=== PATIENT | female | born 1930 | race Caucasian/White ===

== ENCOUNTER 2016-10-04 14:05 | Inpatient (IN) | payer MEDICARE ==
[~2016-10-04] VITALS: Ht 157.5 cm; Wt 52.8 kg
[~2016-10-04 14:05] MED LIST: BRILINTA90 MG PO; GLUCOPHAGE500 MG PO; NEURONTIN 300300 MG PO; NEURONTIN600 MG PO; OXYBUTYNIN CHLOR5 MG PO; PLAVIX75 MG PO; TAMIFLU75 MG
[2016-10-04 15:27] LABS: BASOPHILS 0.1 % (0.0-2.0); EOSINOPHILS 0.4 % (0-7); HEMOGLOBIN 11.8 g/dL (12-16); IMMATURE GRANULOCYTES 0.3 % (0-5); LYMPHOCYTES 9.6 % (15-50); MCH 24.8 pg (26.0-34.0); MCHC 31.9 g/dL (31.0-37.0); MCV 77.7 fL (80.0-100.0); MEAN PLATELET VOLUME 9.1 fL (7.4-10.4); MONOCYTES 6.5 % (2-11); NEUTROPHILS 83.1 % (40-80); PLATELET COUNT 294 10x3/uL (130-400); RBC 4.76 10x6/uL (4.00-5.40)
[2016-10-04 16:23] LABS: ALBUMIN 2.9 g/dL (3.4-5.0); ALKALINE PHOSPHATASE 68 U/L (46-116); ALT (SGPT) 14 U/L (10-68); CALC OSMOLALITY 271 mosm/kg (275-300); CALCIUM 8.9 mg/dL (8.5-10.1); CHLORIDE - SERUM 99 mmol/L (98-107); CREATININE - SERUM 0.9 mg/dL (0.6-1.3); GLUCOSE 116 mg/dL (74-106); POTASSIUM - SERUM 4.5 mmol/L (3.5-5.1); PROTEIN - SERUM 6.1 g/dL (6.4-8.2); SODIUM 133 mmol/L (136-145); UREA NITROGEN 27 mg/dL (7-18); eGFR NON AFRICAN AMERICAN 62 mL/min (90-120)
[2016-10-04 16:30] LABS: APPEARANCE CLEAR (CLEAR); BILIRUBIN NEGATIVE (NEGATIVE); COLOR YELLOW (YELLOW); GLUCOSE NEGATIVE (NEGATIVE); KETONE NEGATIVE (NEGATIVE); LEUKOCYTE ESTERASE TRACE (NEGATIVE); NITRITE NEGATIVE (NEGATIVE); PROTEIN NEGATIVE (NEGATIVE); UROBILINOGEN NORMAL (NORMAL)
[2016-10-04 16:32] LABS: CREATINE KINASE 25 UL (21-215); THYROID STIMULATING HORMONE 2.57 uIU/mL (0.36-3.74); TROPONIN-I < 0.017 ng/mL (0.000-0.060)
[2016-10-04 16:33] LABS: BACTERIA FEW /hpf (NONE SEEN); EPITHELIAL CELLS 0-5 /hpf (0-5); RED CELLS - URINE OCC /hpf (0-5)
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
[2016-10-04 20:00] VITALS: BP 137/76
[2016-10-04] MEDS ORDERED: LITHIUM CARBON300 MG PO (20:16)
[2016-10-04] MEDS ORDERED: CARAFATE1 G PO (20:18)
[2016-10-04] MEDS ORDERED: OMEPRAZOLE20 M1 PO (20:19)
[2016-10-04 21:28] LABS: HEMOGLOBIN A1C 6.1 % (4.8-6.0)
[2016-10-05] VITALS (7 sets, daily range): BP systolic 99–137; BP diastolic 58–76; Ht 157.5 cm; Wt 52.8 kg
[2016-10-05 06:41] LABS: BASOPHILS 0.1 % (0.0-2.0); EOSINOPHILS 0.6 % (0-7); HEMATOCRIT 31.9 % (36.0-48.0); HEMOGLOBIN 10.3 g/dL (12-16); IMMATURE GRANULOCYTES 0.3 % (0-5); LYMPHOCYTES 8.3 % (15-50); MCH 24.6 pg (26.0-34.0); MCHC 32.3 g/dL (31.0-37.0); MCV 76.3 fL (80.0-100.0); MEAN PLATELET VOLUME 9.3 fL (7.4-10.4); MONOCYTES 6.7 % (2-11); PLATELET COUNT 256 10x3/uL (130-400); RBC 4.18 10x6/uL (4.00-5.40); RDW 14.2 % (11.5-14.5)
[2016-10-05 06:45] LABS: CALC OSMOLALITY 274 mosm/kg (275-300); CALCIUM 8.1 mg/dL (8.5-10.1); CARBON DIOXIDE 21.3 mmol/L (21.0-32.0); CHLORIDE - SERUM 104 mmol/L (98-107); CREATININE - SERUM 0.7 mg/dL (0.6-1.3); GLUCOSE 125 mg/dL (74-106); POTASSIUM - SERUM 4.8 mmol/L (3.5-5.1); SODIUM 135 mmol/L (136-145); UREA NITROGEN 24 mg/dL (7-18); eGFR NON AFRICAN AMERICAN 83 mL/min (90-120)
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
--- NOTE | 2016-10-05 19:20 | NUR ---
PT RECEIVED IN BED WITH EYES OPEN VISITING WITH DAUGHTER IN CHAIR AT BEDSIDE. NO COMPLAINTS AT THIS TIME. CALL LIGHT IN REACH.
[2016-10-06 02:00] VITALS: BP 132/70
--- NOTE | 2016-10-06 03:44 | NUR ---
PT IN BED WITH EYES CLOSED AND CHEST RISING. IV TO LEFT FOREARM PER CHARGE NURSE. NS 0.9% 1000ML RUNNING AT 125ML/HR. PATIENT WITHOUT SIGN/SYMPTOMS OF INFILTRATION AT THIS TIME. PT COMPLAINED OF HEAD PRESSURE AND NUMBNESS. B/P 134/76 AND PULSE 95. TYLENOL GIVEN PER SEP. REPOSITIONED IN BED WITH RELIEF FROM NUMBNESS NOTED BEFORE LEAVING ROOM. WILL CONTINUE TO OBSERVE. CALL LIGHT IN REACH. DAUGHTER IN ROOM WITH EYES CLOSED IN CHAIR AT BEDSIDE.
[2016-10-06 05:59] LABS: BASOPHILS 0.1 % (0.0-2.0); EOSINOPHILS 3.7 % (0-7); HEMATOCRIT 34.1 % (36.0-48.0); HEMOGLOBIN 10.8 g/dL (12-16); IMMATURE GRANULOCYTES 1.5 % (0-5); LYMPHOCYTES 7.1 % (15-50); MCH 24.7 pg (26.0-34.0); MCHC 31.7 g/dL (31.0-37.0); MEAN PLATELET VOLUME 10.2 fL (7.4-10.4); MONOCYTES 7.2 % (2-11); NEUTROPHILS 80.4 % (40-80); PLATELET COUNT 248 10x3/uL (130-400); RBC 4.37 10x6/uL (4.00-5.40); RDW 14.3 % (11.5-14.5); WBC 10.5 10x3/uL (4.8-10.8)
[2016-10-06 06:24] LABS: ALBUMIN 2.2 g/dL (3.4-5.0); BILIRUBIN - TOTAL 0.3 mg/dL (0.2-1.3); CALCIUM 8.2 mg/dL (8.5-10.1); CARBON DIOXIDE 23.6 mmol/L (21.0-32.0); POTASSIUM - SERUM 4.6 mmol/L (3.5-5.1); PROTEIN - SERUM 5.6 g/dL (6.4-8.2)
[2016-10-06 06:25] LABS: CREATININE - SERUM 0.9 mg/dL (0.6-1.3)
[2016-10-06 08:07] VITALS: BP 116/68
--- NOTE | 2016-10-06 08:22 | NUR ---
AM ROUNDING- PT LAYING IN BED ON RIGHT SIDE WITH EYES CLOSED RESTING. FAMILY MEMBER AT BEDSDIE. ON ROOM AIR. NO MONITOR. IV SEEN TO LEFT FOREARM WITH NS RUNNING AT 125CC/HR. SCDS ARE ON. PER REPORT PT IS UP WITH ASSIST. PER REPORT FROM REVENUE RESEARCH ANALYST NURSE JIMBO, PT HAS A COLOSTOMY. ON EP, WILL CHECK AM LABS AND TX PER PROTOCOL. NO NEED AT CURRENT TIME. WILL CONTINUE TO MONITOR AND CONTINUE WITH PLAN OF CARE.
[2016-10-06 12:22] VITALS: BP 135/103
--- NOTE | 2016-10-06 13:57 | NUR ---
Nutrition follow-up: Diet: Consistent CHO PO intake ~50% of meals Labs reviewed Wt: 99# Recommend changing diet to regular as tolerated due to pt with poor po intake at this time. Will continue tor provide food choices and honor food preferences with diet restrictions. RDN following.
--- NOTE | 2016-10-06 16:06 | NUR ---
CRISTINA KINGSTON CAME TO INFORM ME THAT PTS O2 SAT WAS READING VERY LOW. WENT TO CHECK ON PT AND PT STATED SHE FELT OUT OF IT. PTS 02 SAT WOULD NOT READ. CALLED RESPIRATORY IN ROOM. PT INSTRUCTED TO TAKE SOME DEEP BREATHS. PTS FINGERS WERE COLD TO TOUCH SO RESPIRATORY WARMED PTS HANDS UP. PTS O2 SAT IS 99% NOW ON ROOM AIR. WILL CONTINUE TO MONITOR.
[2016-10-06 16:10] VITALS: BP 117/63
--- NOTE | 2016-10-06 18:12 | NUR ---
YULIA ON PHONE, INFORMED ME THAT PT CANNOT HAVE A BARIUM SWALLOW TODAY ORDERED BY DR. LAMB BECAUSE THE SPEECH PATHOLOGIST IS NOT HERE. YULIA STATED IT WOULD HAVE TO BE TOMORROW. I PAGED SKYLER HASSAN NP TO INFORM HER OF THIS. WILL AWAIT CALLBACK.
--- NOTE | 2016-10-06 18:17 | NUR ---
RECEIVED CALLBACK FROM SKYLER HASSAN NP REGARDING PTS BARIUM SWALLOW TEST. I INFORMED SKYLER HASSAN NP THAT [facility] SAID THEY WOULD HAVE TO DO IT TOMORROW. SKYLER HASSAN NP STATED THAT WOULD BE FINE.
--- NOTE | 2016-10-06 18:18 | NUR ---
MAXIMO FROM [facility] CALLED TO INFORM ME THAT THEY WILL DO BARIUM SWALLOW TEST, ONE VIEW CHEST XRAY, RIBS, AND CT OF ABDOMEN TOMORROW. WILL PASS THIS ALONG IN REPORT.
--- NOTE | 2016-10-06 18:22 | NUR ---
PT LAYING IN BED ON BACK WITH EYES OPEN RESTING. DAUGHTER IS AT BEDSIDE. DR. EDMONDS IN ROOM MAKING ROUNDS. WILL AWAIT NEW ORDERS AND CONTINUE TO MONITOR.
--- NOTE | 2016-10-06 18:46 | NUR ---
DR. EDMONDS IN ROOM. INFORMED ME TO CALL FIRST THING IN THE MORNING TO [facility] TO GET "OPERATVIE REPORT AND PATHOLOGY REPORT FROM PTS SURGERY IN 2015". DR. EDMONDS ALSO INFORMED ME TO CALL [facility], AND GET PTS HISTORY AND PHYSICAL. INFORMED DR. EDMONDS THAT I WOULD PASS THIS ALONG IN REPORT AND DO ORDERED TOMORROW MORNING. WILL CONTINUE TO MONITOR.
--- NOTE | 2016-10-06 21:39 | NUR ---
PT LYING IN BED, EYES CLOSED, RESPIRATIONS EVEN AND UNLABORED. PT EASILY ROUSABLE TO VERBAL STIMULI, DENIES ANY ACUTE NEEDS. PT IS ALERT AND ORIENTED. I DID ASSIST PT IN CHANGING POSITIONS TURNING HER TO THE LEFT WITH A PILLOW UNDER HER RIGHT SIDE, WITH LEGS ELEVATED ON PILLOW AND HEELS BRIDGED. CONTINUE TO MONITOR CLOSELY.
[2016-10-07] VITALS: BP 122/67
[2016-10-07 04:00] VITALS: BP 130/64
--- NOTE | 2016-10-07 04:53 | NUR ---
NURSE ROUNDS 21:00 - PT AWAKE, ALERT, ORIENTED, DENIED ANY NEEDS. CONTINUE TO MONITOR CLOSELY. BED LOW, CALL LIGHT IN REACH, SIDE RAILS X 2, HOB 30 DEGREES.
[2016-10-07 05:34] LABS: BASOPHILS 0.1 % (0.0-2.0); EOSINOPHILS 0.2 % (0-7); HEMATOCRIT 32.9 % (36.0-48.0); HEMOGLOBIN 10.5 g/dL (12-16); IMMATURE GRANULOCYTES 0.3 % (0-5); MCH 24.8 pg (26.0-34.0); MCHC 31.9 g/dL (31.0-37.0); MCV 77.6 fL (80.0-100.0); MEAN PLATELET VOLUME 9.7 fL (7.4-10.4); MONOCYTES 8.5 % (2-11); NEUTROPHILS 82.9 % (40-80); PLATELET COUNT 293 10x3/uL (130-400); RBC 4.24 10x6/uL (4.00-5.40); RDW 14.3 % (11.5-14.5); WBC 11.8 10x3/uL (4.8-10.8)
[2016-10-07 05:59] LABS: ALBUMIN 1.9 g/dL (3.4-5.0); ANION GAP 12.9 mmol/L (8-16); BILIRUBIN - TOTAL 0.3 mg/dL (0.2-1.3); CARBON DIOXIDE 23.2 mmol/L (21.0-32.0); CREATININE - SERUM 0.9 mg/dL (0.6-1.3); POTASSIUM - SERUM 4.1 mmol/L (3.5-5.1); PROTEIN - SERUM 5.3 g/dL (6.4-8.2)
--- NOTE | 2016-10-07 07:59 | NUR ---
AM ROUNDING- PT LAYING IN BED ON BACK WITH EYES CLOSED RESTING. ON ROOM AIR. NO MONITOR. EP, WILL CHECK AM LABS AND TX PER PROTOCOL. IV SEEN TO LEFT FOREARM WITH NS RUNNING AT 125CC/HR. SCDS ARE ON. INFORMED LORI, JUVENILE CORRECTIONAL OFFICER THAT WE NEED OLD RECORDS FROM [facility] PER REPORT. LORI STATED SHE WOULD TRY AND RECEIVE THEM. NO OTHER NEED AT CURRENT TIME. WILL CONTINUE TO MONITOR AND CONTINUE WITH PLAN OF CARE.
[2016-10-07 08:00] VITALS: BP 127/60
--- NOTE | 2016-10-07 08:21 | NUR ---
STAFF MEMBER FROM IR ON UNIT INFORMED ME THAT SHE GAVE PT CONTRAST TO DRINK AND INFORMED PT TO NOT EAT OR DRINK ANYTHING UNTIL AFTER HER PROCEDURE, PT AGREED. NPO SIGN PLACED ON PTS DOOR AND PT ENCOURAGE TO DRINK CONTRAST FOR PROCEDURE. WILL CONTINUE TO MONITOR.
--- NOTE | 2016-10-07 10:04 | NUR ---
PT TO CT VIA BED.
--- NOTE | 2016-10-07 10:32 | NUR ---
Rehab Note- Acute Rehab Prescreen order received. The patient appears to be a good IRF candidate medically. Has a PT & OT eval- awaiting PT eval to see the patient's functional mobility. Will follow at this time. Thank you for this referral! Laura Pugh RN Clinical Liaison, [facility] Rehab/[place]
--- NOTE | 2016-10-07 10:50 | NUR ---
1015- PT BACK FROM CT VIA BED.
[2016-10-07 12:00] VITALS: BP 123/66
--- NOTE | 2016-10-07 16:52 | NUR ---
1600- ASSISTED PTS DAUGHTER IN CHANGING PTS COLOSTOMY BAG.
--- NOTE | 2016-10-07 17:26 | NUR ---
CONSENTS FOR PROCEDURE SIGNED BY PT AND PLACED IN CHART. PT INSTRUCTED TO REMAIN NPO (NOTHING BY MOUTH) AFTER MIDNIGHT FOR PROCEDURE TOMORROW, PT AGREED. WILL PASS THIS ALONG IN REPORT AND CONTINUE MONITOR.
--- NOTE | 2016-10-07 17:33 | NUR ---
Patient Name: ANA QUACH Encounter No: [id number] : 1930 Primary Insurance: MEDICARE A & B Anticipated DC Date: 10-07-2016 Planned Disposition: inpatient rehab External Planned Provider: [facility] inpatient rehab DCP follow-up note: CM RECEIVED ORDER FOR INPATIENT REHAB PRESCREENING. CM MET WITH PT AND DAUGHTER IN ROOM AND DISCUSSED INPATIENT REHAB OPTIONS. PT WOULD LIKE TO BE CONSIDERED FOR INPATIENT REHAB AT [facility] WITH GOAL TO DISCHARGE HOME WITH DAUGHTER. IMPORTANT MESSAGE FROM MEDICARE PROVIDED AND EXPLAINED. CM WAITING RESULTS OF INPATIENT REHAB PRESCREENING BY [facility] INPATIENT [facility]. Hal Jeter, CASE MANAGEMENT
[2016-10-07 17:52] VITALS: BP 128/78
[2016-10-07 20:52] VITALS: BP 127/64
--- NOTE | 2016-10-07 21:39 | NUR ---
PT AWAKE, ALERT, ORIENTED, HAS AMBULATED WITH ASSIST TO BATHROOM. PT DENIES ANY NEEDS. CONTINUE TO MONITOR CLOSELY. BED LOW, CALL LIGHT IN REACH, SIDE RAILS X 2, HOB 35 DEGREES.
[2016-10-08 01:33] VITALS: BP 136/61
--- NOTE | 2016-10-08 01:45 | NUR ---
PTS IV IN LEFT FOREARM HAS INFILTRATED, REMOVED, WITH CATH TIP INTACT. WILL RESITE. PT DENIES ANY NEEDS. CONTINUE TO MONITOR CLOSELY.
[2016-10-08 05:01] LABS: BASOPHILS 0.1 % (0.0-2.0); EOSINOPHILS 0.8 % (0-7); HEMATOCRIT 27.2 % (36.0-48.0); HEMOGLOBIN 8.7 g/dL (12-16); IMMATURE GRANULOCYTES 0.4 % (0-5); LYMPHOCYTES 7.6 % (15-50); MCH 24.6 pg (26.0-34.0); MCV 76.8 fL (80.0-100.0); MEAN PLATELET VOLUME 9.4 fL (7.4-10.4); MONOCYTES 9.4 % (2-11); NEUTROPHILS 81.7 % (40-80); PLATELET COUNT 253 10x3/uL (130-400); RBC 3.54 10x6/uL (4.00-5.40); RDW 14.2 % (11.5-14.5)
[2016-10-08 05:07] LABS: WBC 8.4 10x3/uL (4.8-10.8)
[2016-10-08 05:13] LABS: INR 1.19 (0.85-1.17)
[2016-10-08 05:14] LABS: APTT 38.6 SECONDS (22.8-39.4)
[2016-10-08 05:18] LABS: ALBUMIN 1.7 g/dL (3.4-5.0); ALKALINE PHOSPHATASE 59 U/L (46-116); ALT (SGPT) 10 U/L (10-68); CALC OSMOLALITY 270 mosm/kg (275-300); CALCIUM 7.8 mg/dL (8.5-10.1); CARBON DIOXIDE 21.9 mmol/L (21.0-32.0); CHLORIDE - SERUM 104 mmol/L (98-107); CREATININE - SERUM 0.7 mg/dL (0.6-1.3); GLUCOSE 118 mg/dL (74-106); POTASSIUM - SERUM 3.9 mmol/L (3.5-5.1); PROTEIN - SERUM 5.1 g/dL (6.4-8.2); SODIUM 134 mmol/L (136-145); UREA NITROGEN 18 mg/dL (7-18); eGFR NON AFRICAN AMERICAN 83 mL/min (90-120)
[2016-10-08 06:04] VITALS: BP 157/61
[2016-10-08 07:47] VITALS: BP 120/68
--- NOTE | 2016-10-08 08:23 | NUR ---
RESTING IN BED. NPO FOR CT PARACENSTIS.
--- NOTE | 2016-10-08 09:31 | NUR ---
Rehab Note- Awaiting Oncology consult. Will continue to follow the patient at this time. Laura Pugh RN Clinical Liaison, [facility] Rehab/[place]
[2016-10-08 11:31] VITALS: BP 107/62
--- NOTE | 2016-10-08 13:06 | NUR ---
Nutrition follow-up: Pt is currently NPO for paracentesis Diet changed to mechanical soft with nectar thick liquids Wt: 103# +BM RDN following.
--- NOTE | 2016-10-08 14:40 | NUR ---
BACK FROM PARACENTISIS - 2 LITERS REMOVED. SLEEPING BUT AROUSEABLE. FAMILY AT BEDSIDE.
[2016-10-08 15:16] LABS: EOS BF 2 %; LYMPH - BF 14 %; MACROPHAGES BF 67 %; MESOTHELIALS BF 4 %; NEUT - BF 13 %
[2016-10-08 15:17] LABS: PROTEIN - BODY FLUID 3.2 G/DL
[2016-10-08 15:35] VITALS: BP 128/64
--- NOTE | 2016-10-08 15:45 | NUR ---
ORDER FOR BLACK REMOVAL. 1400 CC OF CLEAR URINE DRAINED. BLACK BULB DRAINED OF 10CC. BLACK REMOVED WITH TIP INTACT. NO SIGNS OF INFECTION NOTED. URINAL GIVEN TO PATIENT AND INSTRUCTED ABOUT OUTPUT. PATIENT HAS BEEN UP IN CHAIR AND WALKED WITH PT. RUDI WELL. MONITOR SHOWS FLUTTER AT RATE OF 79. PATIENT HAS BEEN FROM [place] TO UNAF, TO FLUTTER. SAMANTHA GTT ON @ 5. WILL CONTINUE TO MONITOR.
--- NOTE | 2016-10-08 17:43 | CN ---
PATIENT NAME:ANA QUACH MEDICAL RECORD: [id number] : [birth year] LOCATION:[address]2134 ADMIT DATE: 10/04/16 ACCOUNT: [id number] CONSULTING PHYSICIAN: ALBAN CELIS MD REFERRING PHYSICIAN: HUEY GARCIA MD DATE OF CONSULTATION: 10/05/2016 Gastroenterology Consultation REFERRING PHYSICIAN: Huey Garcia MD HISTORY OF PRESENT ILLNESS: The patient is an 86-year-old white female, very poor historian with a history of bipolar disorder, coronary artery disease, diabetes, hypertension, osteoarthritis, and chronic constipation, who was basically admitted with mild anemia, dehydration, and heme-positive stool. I was asked to see the patient in this regard. On further questioning, she apparently was diagnosed with a pelvic mass at [facility] in May 2015 requiring exploratory laparotomy. 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 She was also encroaching into the rectum, sigmoid colon and the bladder. She subsequently underwent resection of that area with ostomy placement. She also had part of her vagina removed as well as both ovaries. She did not have chemotherapy. It is a little unclear as to why. She did have some positive lymph nodes. She ended up in [place] and apparently chemo was not recommended. Regardless, she is now on [place] and presents with the above presentation. She is a very poor historian. She has a somewhat protuberant abdomen. PAST MEDICAL HISTORY: As above. She has also had CVA as well as neuropathy. PAST SURGICAL HISTORY: Remarkable for appendectomy, hysterectomy, bilateral shoulder replacement, CABG and her exploratory laparotomy as noted above at [facility]. ALLERGIES: No known drug allergies. HOME MEDICATIONS: Include metformin, Ditropan, Neurontin, lithium, Carafate, omeprazole, Plavix, Brilinta and Tamiflu. FAMILY HISTORY: Negative for GI disease. SOCIAL HISTORY: The patient is former smoker. She denies alcohol use. REVIEW OF SYSTEMS: Noncontributory other than in the HPI. PHYSICAL EXAMINATION: GENERAL: Reveals a frail elderly white female, in minimal distress. Again, she is a very poor historian. VITAL SIGNS: Stable. She is afebrile. CHEST: Clear. HEART: Regular rate and rhythm. ABDOMEN: Soft, but definitely protuberant with probable ascites. EXTREMITIES: Reveal trace pedal edema bilaterally. LABORATORY DATA: Reveals a white count of 11,000, hematocrit of 32, MCV of 76, CONSULT REPORT [id number] ANA QUACH and platelet count of 256,000 with a mild left shift. Electrolytes are normal. BUN 20 and creatinine 0.9. Liver enzymes are normal. Albumin is quite low at 2.2. CEA is 1.3. TSH is normal at 2.57. [place] level is 0.96 ____. UA is negative. DIAGNOSTIC DATA: KUB reveals significant constipation. IMPRESSION: 1. Heme-positive stool lady with a left-sided colostomy and mild anemia of unclear etiology. This might be due to trauma at the ostomy site, focal colitis, upper gastrointestinal source, etc. She has dark brown stool in her bag at present. 2. Very poor historian. 3. History of a large pelvic mass requiring resection in May 2015 at [facility] as noted above. This was involving the bladder and her colon and was a neuroendocrine tumor. She did not get chemotherapy. 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 4. Constipation per KUB. 5. History of bipolar disorder, coronary artery disease, diabetes, hypertension, osteoarthritis, and chronic constipation. RECOMMENDATION: 1. Try to obtain all of the records from [facility] in [place]. 2. MiraLax daily. 3. Probably needs a paracentesis. 4. Consider oncology referral. 5. Obviously, hold her Plavix and Brilinta. TRANSINT:[id number] Voice Confirmation ID: [id number] DOCUMENT ID: [id number] ALBAN CELIS MD at 1743 CC: HUEY GARCIA MD [id number] DICTATION DATE: 10/07/16 1334 VOLCANOLOGY PROFESSOR: 10/07/16 2753 ADM IN [facility] [address] [place] [address]
--- NOTE | 2016-10-08 19:59 | NUR ---
PT SEEN TODAY FOR DIET TOLERANCE ANALYSIS. NURSING REPORTED PT HAVING NO DIFFICULTY WITH DIET; CLEARED PT FOR PARTICIPATION. PT AWAKE, ALERT, AND LONG-SITTING IN BED UPON CLINICIAN ARRIVAL. PT DAUGHTER AT BEDSIDE. PT DENIED PAIN; BREATHING ROOM AIR. PT PRESENTED WITH GENERALIZED WEAKNESS AND CONFUSION. CLINCIAN ELEVATED HOB TO 90 DEGREES. PT WAS GIVEN TRIALS OF MECHANICAL SOFT AND THIN LIQUIDS WITH NO OVERT S/SX OF ASPIRATION. CLINICIAN RECOMMENDS PT CONTINUE CURRENT DIET WITH GENERAL SWALLOW PRECAUTIONS. CLINCIAN REVIEWED SWALLOWING PRECAUTIONS WITH PT AND DAUGHTER; BOTH VERBALIZED AGREEMENT AND UNDERSTANDING. NURSING INFORMED.
[2016-10-08 20:00] VITALS: BP 140/62
[2016-10-09 04:00] VITALS: BP 142/72
[2016-10-09 05:37] LABS: BASOPHILS 0.1 % (0.0-2.0); EOSINOPHILS 1.6 % (0-7); HEMATOCRIT 28.4 % (36.0-48.0); HEMOGLOBIN 9.3 g/dL (12-16); IMMATURE GRANULOCYTES 0.4 % (0-5); LYMPHOCYTES 8.7 % (15-50); MCH 25.1 pg (26.0-34.0); MCHC 32.7 g/dL (31.0-37.0); MCV 76.8 fL (80.0-100.0); MEAN PLATELET VOLUME 9.7 fL (7.4-10.4); MONOCYTES 8.1 % (2-11); NEUTROPHILS 81.1 % (40-80); PLATELET COUNT 239 10x3/uL (130-400); RDW 14.4 % (11.5-14.5)
[2016-10-09 05:56] LABS: ALBUMIN 1.7 g/dL (3.4-5.0); ALKALINE PHOSPHATASE 59 U/L (46-116); ALT (SGPT) 12 U/L (10-68); BILIRUBIN - TOTAL 0.25 mg/dL (0.2-1.3); CALC OSMOLALITY 273 mosm/kg (275-300); CALCIUM 7.7 mg/dL (8.5-10.1); CARBON DIOXIDE 20.4 mmol/L (21.0-32.0); CHLORIDE - SERUM 104 mmol/L (98-107); CREATININE - SERUM 0.7 mg/dL (0.6-1.3); GLUCOSE 141 mg/dL (74-106); POTASSIUM - SERUM 4.2 mmol/L (3.5-5.1); PROTEIN - SERUM 4.4 g/dL (6.4-8.2); SODIUM 135 mmol/L (136-145); UREA NITROGEN 18 mg/dL (7-18); eGFR NON AFRICAN AMERICAN 83 mL/min (90-120)
[2016-10-09 08:47] VITALS: BP 144/78
--- NOTE | 2016-10-09 09:00 | NUR ---
Patient Name: ANA QUACH Encounter No: [id number] : 1930 Primary Insurance: MEDICARE A & B Anticipated DC Date: 10-07-2016 Planned Disposition: INPATIENT REHAB External Planned Provider: [facility] INPAT[facility] DCP follow-up note: CM CALLED SHEELA CHRISTINE OF [facility], , LEFT MESSAGE ASKING FOR RETURN CALL AND TO FOLLOW UP WITH PT AND DAUGHTER REGARDING EXISTING [facility] REFERRAL. PT AND DAUGHTER NOTIFIED, BOTH STILL IN AGREEMENT WITH DISCHARGE TO INPATIENT REHAB AT [place]. CM WAITING MEDICAL STABILITY WITH PLANNED DISCHARGE TO [facility] INPATIENT REHAB. WHEN STABLE FOR DISCHARGE, NOTIFY [facility]PAT[facility]. Hal Jeter, CASE MANAGEMENT
[2016-10-09 13:34] VITALS: BP 150/80
[2016-10-09] MEDS ORDERED: MINERAL OIL25 ML PO (15:02)
[2016-10-09] MEDS ORDERED: MIRALAX17 GM PO (15:02)
[2016-10-09 18:15] VITALS: BP 173/77
--- NOTE | 2016-10-09 18:50 | NUR ---
ALERT AND ORIENTED X4. RESTING IN BED. WAITING FOR REHAB BED DOWNSTAIRS. TRY CALLING BUT NO ANSWER. INFORM POWER SHOVEL OPERATOR NO ANSWER TO GIVE REPORT AND NO BED ASSIGNED. CONTINUE PLAN OF CARE AND SAFETY PRECAUTIONS.
--- NOTE | 2016-10-09 20:10 | NUR ---
REPORT CALLED TO REHAB BY [facility] FROM DAY SHIFT. REVIEWED DISCHARGE PAPERS WITH PT'S DAUGHTER AND PT NOW BEING READIED TO BE TAKEN TO ROOM 1116 IN REHAB.
--- NOTE | 2016-10-12 11:06 | NUR ---
Patient Name: ANA QUACH Encounter No: [id number] : 1930 Primary Insurance: MEDICARE A & B Anticipated DC Date: 10-09-2016 Planned Disposition: Inpatient Rehab External Planned Provider: [facility] IN[facility] DCP follow-up note: CM RECEIVED CALL FROM SHEELA KING OF [facility], WHO PROVIDED FAX NUMBER FOR MEDICAL RECORDS. CM FAXED REQUESTED INFORMATION, PROVIDED UPDATE TO ADULT PROTECTIVE SERVICES TO PT'S DISCHARGE ON WEDNESDAY LAST WEEK TO INPATIENT REHAB. Hal Jeter, CASE MANAGEMENT
[2016-10-12 14:43] LABS: CHROMOGRANIN A 18 nmol/L (0-5)
--- NOTE | 2016-10-13 14:37 | EC ---
PATIENT:ANA QUACH DATE OF SERVICE: 10/04/16 SEX: F MEDICAL RECORD: [id number] DATE OF : [birth year] LOCATION:D.M2 D.213 AGE OF PATIENT: 86 ADMISSION DATE: 10/04/16 REFERRING PHYSICIAN: INTERPRETING PHYSICIAN: SUNDAY ARCHER MD ECHOCARDIOGRAM REPORT ECHO CHARGES 4 ECHO COMPLETE CLINICAL DIAGNOSIS: EDEMA HX OF CAD/CABG ECHOCARDIOGRAPHIC MEASUREMENTS (adult normal given) AC root (d.<3.7cm) 3.2 LV Septum d (<1.2 cm> 0.9 Valve Excursion 1.3 LV Septum (systole) 1.2 Left Atria (s.<4.0cm> 4.0 LVPW d(<1.2cm) 1.4 RV (d.<2.3cm) 2.8 LVPW (sytole) 1.5 LV diastole(<5.6CM) 4.4 MV E-F(>70mm/sec) LV systole 3.2 LVOT Diameter 1.4 MV exc.(>10mm) 1.2 Est.ejection fraction (50-75%) Pericardial Effusion N DOPPLER: LVIT A 86.0 E 58.0 LA RVSP 59 LVOT 92 AOP1/2T Asc. Ao 125 RVOT 89 RA PA 124 AV Gradient Peak 6.24 AV Mean 3.68 AV Area 1.2 MV Gradient Peak 4.74 MV Mean 1.55 MV Area COMMENTS: Vp Software: Michael SIN Header Dock:Jerald Lawrence TAPE# PACS DATE OF SERVICE: 10/05/2016 Echocardiogram FINDINGS: 1. Left ventricular chamber size is within normal limits. Left ventricular systolic function is normal. Overall ejection fraction estimated at 55%. 2. Left atrium is upper limits of normal at 4.0 cm. Right atrium and right ventricular chamber sizes are mildly dilated. 3. Valvular structures. 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 Valve area calculates to 1.2 cm-squared with a gradient of approximately 10 mm across the valve. The remaining valvular structures have normal structure and motion. 4. Doppler interrogation reveals mild mitral regurgitation, moderate tricuspid regurgitation, no other valvular insufficiency or stenosis. Pulmonary systolic pressure is elevated estimated at 59 mmHg. 5. No evidence of pericardial effusion or left ventricular thrombus. TRANSINT:[id number] Voice Confirmation ID: [id number] DOCUMENT ID: [id number] SUNDAY ARCHER MD at 1437 CC: [id number] DICTATION DATE: 10/05/16 1204 VIROLOGY TEACHER: 10/05/16 1418 DIS IN 10/09/16 [place] [id number] [place] [id number]
[2016-10-14 09:19] LABS: SEROTONIN 35 ng/mL (0-420)
== END 2016-10-09 20:38 | DRG 811 ==
LOC: D.ER 14:05 → D.M2 16:47
PROVIDERS: Emergency Medicine; Family Medicine; General Practice; Internal Medicine Gastroenterology; Internal Medicine Hematology & Oncology; ADMIT Family Medicine
PROC: 0W9G3ZZ Drainage of Peritoneal Cavity, Percutaneous Approach (ICD-10-PCS; principal; 2016-10-08 13:08)
DX: D64.9 Anemia, unspecified (principal); I50.21 Acute systolic (congestive) heart failure; E43 Unspecified severe protein-calorie malnutrition; Z68.1 Body mass index [BMI] 19.9 or less, adult; R19.5 Other fecal abnormalities; I08.1 Rheumatic disorders of both mitral and tricuspid valves; E11.65 Type 2 diabetes mellitus with hyperglycemia; E11.40 Type 2 diabetes mellitus with diabetic neuropathy, unspecified; I27.2 Other secondary pulmonary hypertension; E86.0 Dehydration; E27.9 Disorder of adrenal gland, unspecified; I25.10 Atherosclerotic heart disease of native coronary artery without angina pectoris; R53.1 Weakness; K59.09 Other constipation; Z93.3 Colostomy status; Z95.1 Presence of aortocoronary bypass graft; Z85.038 Personal history of other malignant neoplasm of large intestine; Z95.5 Presence of coronary angioplasty implant and graft; Z86.73 Personal history of transient ischemic attack (TIA), and cerebral infarction without residual deficits; Z87.891 Personal history of nicotine dependence

== ENCOUNTER 2016-10-09 20:30 | Inpatient (IN) | payer MEDICARE ==
[~2016-10-09] VITALS: Ht 157.5 cm; Wt 41.7 kg
[~2016-10-09 20:30] MED LIST changes: +CARAFATE1 G PO; +LITHIUM CARBON300 MG PO; +MINERAL OIL25 ML PO; +MIRALAX17 GM PO; +OMEPRAZOLE20 M1 PO
--- NOTE | 2016-10-09 20:30 | NUR ---
PT ADMITTED FROM UPSTAIRS TO ROOM 1116. DAUGHTER STATES SHE PLANS TO STAY WITH PATIENT. PT LIVES WITH DAUGHTER. ORIENTED TO ROOM AND NUTRITION CENTER. NO NEEDS NOTED AT THIS TIME. PT DENIES PAIN.
--- NOTE | 2016-10-09 22:00 | NUR ---
PT SITTING UP IN CHAIR, TOLERATED TAKING MEDS WHOLE. PT STATES HER STOMACH IS FEELING BETTER IN REFERENCE TO ULCER. DAUGHTER AND PATIENT APPEAR TO INTERACT WELL. ADMISSION PROCESS INITIATED AND ENDED. NO ACUTE S/S OF DISTRESS. PT STATES SHE IS TIRED AND FEELS WEAK. PLANS ARE TO RETURN HOME, DAUGHTER STATES ARE WAITING FOR RESULTS RELATED TO POTENTIAL LOWER ABDOMINAL TUMOR THAT HAS RETURNED.
[2016-10-09 22:40] VITALS: BP 136/76; BMI 16.8
--- NOTE | 2016-10-10 05:24 | NUR ---
PT RESTING QUIETLY NO S/S OF ACUTE DISTRESS.
[2016-10-10 08:00] VITALS: BP 116/61
--- NOTE | 2016-10-10 08:00 | NUR ---
POS UP IN BED.SHIFT ASSMT COMPLETED.BILAT LEGS +4 PITTING EDEMA.ABD SOFT BUT IS DISTENDED;RECENTLY HAD REMOVEAL OF 2L/PARACENTESIS.DRSG REMOVED.
[2016-10-10 10:29] VITALS: Ht 157.5 cm; Wt 41.7 kg
--- NOTE | 2016-10-10 12:00 | NUR ---
HAD LONG THERAPY SESSION;PLACED IN BED.LUNCH GIVEN.
[2016-10-10 12:18] LABS: BASOPHILS 0.1 % (0.0-2.0); EOSINOPHILS 1.2 % (0-7); HEMATOCRIT 32.6 % (36.0-48.0); HEMOGLOBIN 10.5 g/dL (12-16); IMMATURE GRANULOCYTES 0.2 % (0-5); LYMPHOCYTES 8.7 % (15-50); MCH 24.4 pg (26.0-34.0); MCHC 32.2 g/dL (31.0-37.0); MCV 75.6 fL (80.0-100.0); MEAN PLATELET VOLUME 9.2 fL (7.4-10.4); MONOCYTES 7.4 % (2-11); NEUTROPHILS 82.4 % (40-80); PLATELET COUNT 305 10x3/uL (130-400); RBC 4.31 10x6/uL (4.00-5.40); RDW 14.3 % (11.5-14.5); WBC 8.4 10x3/uL (4.8-10.8)
[2016-10-10 12:36] LABS: ANION GAP 13.1 mmol/L (8-16); CALCIUM 8.2 mg/dL (8.5-10.1); CREATININE - SERUM 0.8 mg/dL (0.6-1.3); POTASSIUM - SERUM 4.3 mmol/L (3.5-5.1)
[2016-10-10 12:37] LABS: CARBON DIOXIDE 26.2 mmol/L (21.0-32.0)
--- NOTE | 2016-10-10 16:00 | NUR ---
RESTING QUIETLY ON SIDE.DENIES NEEDS.
[2016-10-10 20:10] VITALS: BP 141/79
--- NOTE | 2016-10-10 20:10 | NUR ---
PT IN BED WITH HOB UP FOR COMFORT, VISITING WITH DAUGHTER, PT COMPLAINED OF HAVING LEG PAIN, BED IN LOWEST POSITION AND CALL LIGHT WITHIN REACH.
--- NOTE | 2016-10-10 22:00 | NUR ---
PT STATES LEG PAIN IS GETTING WORSE AND PAIN LEVEL IS 9/10. REQUESTS TYLENOL.
--- NOTE | 2016-10-11 01:30 | NUR ---
pt c/o nausea and urge to vomit. daughter administering baking soda/lemon juice mixed in water as a remedy. daughter states this is what mother takes and home and it usually relieves, daughter believes lemon pie eaten earlier today triggered this episode. applied wet wash cloth and encouraged pt to keep hob elevated.
--- NOTE | 2016-10-11 02:00 | NUR ---
PT IN BED, EYES CLOSED, CHEST RISING AND FALLING, BED IN LOWEST POSITION AND CALL LIGHT WITHIN REACH.
--- NOTE | 2016-10-11 06:00 | NUR ---
PT IN BED, RESTING QUIETLY, BED IN LOWEST POSITION AND CALL LIGHT WITHIN REACH.
[2016-10-11 08:00] VITALS: BP 129/54; BP 140/73
--- NOTE | 2016-10-11 08:00 | NUR ---
SHIFT ASSMT COMPLETED.UP OOB FOR BREAKFAST.SISTER AT BEDSIDE.
--- NOTE | 2016-10-11 12:00 | NUR ---
ASSISTED UP OOB FOR LUNCH.CL IN REACH.
--- NOTE | 2016-10-11 16:00 | NUR ---
RESTING QUIETLY,ABD DISTENDED BUT SOFT.EDEMA REMAINS TO BILAT LEGS,PITTING 4+.
[2016-10-11 20:36] VITALS: BP 158/84
--- NOTE | 2016-10-11 20:36 | NUR ---
PT SITTING ON SIDE OF BED, PT REQUESTED TO GO TO THE BATHROOM, HELPED PT TO THE BATHROOM AND BACK IN BED.
--- NOTE | 2016-10-12 00:35 | NUR ---
RESTING IN BED ON RIGHT SIDE. NO DISTRESS NOTED.
--- NOTE | 2016-10-12 03:29 | NUR ---
PT IN BED, EYES CLOSED, CHEST RISING AND FALLING, BED IN LOWEST POSITION AND CALL LIGHT WITHIN REACH.
[2016-10-12 06:06] LABS: BASOPHILS 0.1 % (0.0-2.0); EOSINOPHILS 0.9 % (0-7); HEMATOCRIT 32.6 % (36.0-48.0); HEMOGLOBIN 10.4 g/dL (12-16); IMMATURE GRANULOCYTES 0.2 % (0-5); LYMPHOCYTES 9.5 % (15-50); MCH 24.5 pg (26.0-34.0); MCHC 31.9 g/dL (31.0-37.0); MCV 76.7 fL (80.0-100.0); MEAN PLATELET VOLUME 9.2 fL (7.4-10.4); MONOCYTES 6.2 % (2-11); NEUTROPHILS 83.1 % (40-80); PLATELET COUNT 278 10x3/uL (130-400); RBC 4.25 10x6/uL (4.00-5.40); RDW 14.4 % (11.5-14.5); WBC 8.5 10x3/uL (4.8-10.8)
[2016-10-12 06:18] LABS: CALC OSMOLALITY 274 mosm/kg (275-300); CALCIUM 8.3 mg/dL (8.5-10.1); CARBON DIOXIDE 27.2 mmol/L (21.0-32.0); CHLORIDE - SERUM 104 mmol/L (98-107); CREATININE - SERUM 0.6 mg/dL (0.6-1.3); GLUCOSE 106 mg/dL (74-106); POTASSIUM - SERUM 4.1 mmol/L (3.5-5.1); SODIUM 137 mmol/L (136-145); UREA NITROGEN 16 mg/dL (7-18); eGFR NON AFRICAN AMERICAN > 90 mL/min (90-120)
--- NOTE | 2016-10-12 07:30 | NUR ---
PT IS RESTING IN BED WITH EYES OPEN. ALERT AND ORIENTED X 3. DENIES ACUTE PAIN OR DISCOMFORT AT THIS TIME. SCD'S ARE ON. 4+EDEMA NOTED TO BLE. COLOSTOMY IS CDI. PT ASSISTED UP TO THE BATHROOM AT THIS TIME. TRANSFERRED WITH MOD ASSIST. AMBULATED WITH RW AND CGA. GAIT IS SLOW AND UNSTEADY. TOILETED WITH SBA. DRESSING WITH MOD ASSIST. PT OPTED TO SIT UP IN CHAIR AFTERWARDS FOR BREAKFAST. SR'S ARE UP X 3 IN BED. CALL LIGHT AND BEDSIDE TABLE ARE WITHIN EASY REACH.
--- NOTE | 2016-10-12 07:31 | NUR ---
RESTING QUIETLY IN BED CALL LIGHT IN REACH
--- NOTE | 2016-10-12 10:01 | NUR ---
PT IS PARTICIPATING IN THERAPY AT THIS TIME.
--- NOTE | 2016-10-12 13:17 | NUR ---
PT IS PARTICIPATING IN THERAPY AFTER LUNCH. NO ACUTE DISTRESS NOTED.
--- NOTE | 2016-10-12 15:40 | NUR ---
PT IS RESTING QUIETLY IN BED WATCHING TV. NO NEEDS VOICED.
--- NOTE | 2016-10-12 20:10 | NUR ---
PT. BACK IN BED AFTER DAUGHTER, LESTER, HAS BEEN ASSISTING PT. IN THE BATHROOM TO CHANGE HER COLOSTOMY APPLIANCE. ASSISTED DAUGHTER IS GETTING PT. UP IN THE BED. ASSESSMENT COMPLETED. PT. DENIES ANY PAIN AND HAS THE CALL LIGHT WITHIN REACH FOR ANY NEEDS. SCD'S REAPPLIED AND TURNED ON TO BLE'S.
[2016-10-12 20:25] VITALS: BP 136/78
--- NOTE | 2016-10-12 23:02 | NUR ---
PT. IN BED WITH HOB UP FOR COMFORT WITH EYES CLOSED AND RESP. EVEN. SCD'S TO BLE ON. DAUGHTER ASLEEP IN CHAIR NEXT TO PT. CALL LIGHT WITHIN REACH.
--- NOTE | 2016-10-13 02:17 | NUR ---
DAUGHTER HAD GOTTEN PT. SOME CHICKEN NOODLE SOUP FOR PT. TO EAT AND WHEN FINISHED REQUESTED ASSISTANCE TO GETTING PT. BACK UP IN BED AND POSITIONED ONTO HER RIGHT SIDE FOR COMFORT. POSITIONED PT. WITH PILLOW TO BACK FOR SUPPORT AND PT. SAID SHE WAS COMFORTABLE. CALL LIGHT WITHIN REACH.
--- NOTE | 2016-10-13 04:20 | NUR ---
PT. IN BED WITH HOB UP FOR COMFORT AND EYES ARE CLOSED AND RESP. EVEN. DAUGHTER IS ASLEEP IN RECLINER NEXT TO PT. CALL LIGHT WITHIN REACH.
--- NOTE | 2016-10-13 08:10 | NUR ---
PT RESTING IN BED WITH EYES OPEN EATING BREAKFAST TOLERATING WELL WILL MONITER
--- NOTE | 2016-10-13 12:41 | NUR ---
Nutrition Follow Up: Pt was asleep and no family present at the time of RD visit. Interview deferred at this time. Chart reviewed. Pt is eating 46% meal avg on a regular diet with chopped meats. Pt is receiving Ensure BID. Wt loss 1# since admit. +BM 10/11/16. Meds noted including Lasix, Metformin. Labs noted. Pt with fair po intake at this time. Rec continue current diet, supplement regimen. Pt may benefit from an appetite stimulant. RD following.
[2016-10-13 19:12] VITALS: BP 122/70
--- NOTE | 2016-10-13 19:30 | NUR ---
PT SITTING UP IN WHEELCHAIR IN ROOM. DAUGHTER VISITING. PT DENIES NEEDS. WCTM.
--- NOTE | 2016-10-13 20:40 | NUR ---
PT HS MEDS ADMINISTERED WHOLE IN APPLESAUCE WITHOUT DIFFICUTLY. PT IS SITTING UP IN WHEELCHAIR IN THERAPY ROOM WITH DAUGHTER AT THIS TIME. PT DENIES NEEDS. WCPOC.
--- NOTE | 2016-10-13 22:56 | NUR ---
PT RESTING, EYES CLOSED. BED LOW. CL IN REACH.
--- NOTE | 2016-10-14 01:50 | NUR ---
PT ASSISTED TO TURN ONTO LEFT SIDE. PT DAUGHTER ASSISTING WITH OTHER NEEDS. WCTM. BED LOW. CL IN REACH.
--- NOTE | 2016-10-14 03:45 | NUR ---
PT RESTING, EYES CLOSED. BED LOW. CL IN REACH.
--- NOTE | 2016-10-14 05:15 | NUR ---
PT WAS HEARD YELLING OUT FOR HELP. UPON ENTERING THE ROOM PT WAS LYING IN BED, YELLING AND CRYING. PT WAS STATING SHE HAD TO GET OUT OF HERE. AFTER ORIENTING PT TO HOSPITAL, PT THEN BEGAN ASKING FOR HER DAUGHTER. DAUGHTER IS NOT HERE AT THIS TIME. PT ASKED TO BE TOLD WHEN HER DAUGHTER ARRIVED. AM MEDS ADMINISTERED IN APPLESAUCE WITH NO DIFFICULTY. WCTM. BED LOW. CL IN REACH.
[2016-10-14 07:04] LABS: CALC OSMOLALITY 274 mosm/kg (275-300); CALCIUM 8.5 mg/dL (8.5-10.1); CHLORIDE - SERUM 102 mmol/L (98-107); CREATININE - SERUM 0.7 mg/dL (0.6-1.3); GLUCOSE 84 mg/dL (74-106); POTASSIUM - SERUM 4.3 mmol/L (3.5-5.1); SODIUM 137 mmol/L (136-145); UREA NITROGEN 19 mg/dL (7-18); eGFR NON AFRICAN AMERICAN 83 mL/min (90-120)
--- NOTE | 2016-10-14 07:30 | NUR ---
PT IS RESTING IN BED WITH EYES CLOSED. AWOKE EASILY TO VERBAL STIMULI. ALERT AND ORIENTED X 3. DENIES ACUTE DISCOMFORT AT THIS TIME. COLOSTOMY PATENT. BURPED AT THIS TIME. SR'S ARE UP X 3 IN BED. CALL LIGHT AND BEDSIDE TABLE ARE WITHIN EASY REACH. PTS SISTER JUST GOT HERE TO VISIT.
[2016-10-14 08:45] VITALS: BP 126/77
[2016-10-14 09:10] LABS: BASOPHILS 0.3 % (0.0-2.0); EOSINOPHILS 0.8 % (0-7); HEMATOCRIT 38.6 % (36.0-48.0); IMMATURE GRANULOCYTES 0.6 % (0-5); MCH 24.4 pg (26.0-34.0); MCHC 31.1 g/dL (31.0-37.0); MCV 78.6 fL (80.0-100.0); MEAN PLATELET VOLUME 9.3 fL (7.4-10.4); MONOCYTES 5.5 % (2-11); NEUTROPHILS 84.8 % (40-80); PLATELET COUNT 289 10x3/uL (130-400); RBC 4.91 10x6/uL (4.00-5.40); RDW 14.9 % (11.5-14.5)
--- NOTE | 2016-10-14 09:24 | NUR ---
PT IS RESTING IN BED AWAITING THERAPY. NO ACUTE DISTRESS NOTED.
--- NOTE | 2016-10-14 11:50 | NUR ---
PT IS PARTICIPATING IN THERAPY AT THIS TIME.
--- NOTE | 2016-10-14 12:30 | NUR ---
RESTING QUIETLY.DAUGHTER AT BEDSIDE.
--- NOTE | 2016-10-14 14:47 | NUR ---
CARE TEAM MEETING: PATIENT TENATIVE DISCHARGE DATE IS 10/23/16. DAUGHTER, LESTER CABAN ATTENTED THE MEETING. PATIENT WILL BE RA AT NEXT MEETING. DAUGHTER STATES IN THE MEETING THAT THEY ARE FROM [facility] AND THEY MAY BE GOING BACK HOME THERE WHEN DISCHARGED POSSIBLY. WILL CONTINUE TO FOLLOW WITH PATIENT UNTIL DISCHARGED
--- NOTE | 2016-10-14 16:21 | NUR ---
PT RESTING IN BED WITH EYES CLOSED.
--- NOTE | 2016-10-14 19:45 | NUR ---
PT IN BED WATCHING TV WITH DAUGHTER AT BEDSIDE. NO NEEDS MADE KNOWN AT THIS TIME. CALL LIGHT IN REACH
[2016-10-14 20:51] VITALS: BP 120/70
--- NOTE | 2016-10-15 07:00 | NUR ---
PT WAS RECEIVED AT THE BEGINNING OF THIS SHIFT IN ROOM WITH DAUGHTER. SHE IS SITTING UP IN WHEELCHAIR AND BEGINNING TO EAT HER BREAKFAST. HER DAUGHTER IS HELPING HER. VITAL SIGNS WNL. PT. IS ALERT BUT CONFUSED. APPEARS TO BE VERY FRAIL AND WEAK. NO SIGNS OF ANY DISCOMFORT OR DISTRESS. WILL BE MONITORING PT. THROUGHOUT THIS SHIFT AND ASSISTING PRN WITH ADL'S. WILL BE GIVING HER HER MEDS IN APPLESAUCE.
--- NOTE | 2016-10-15 08:34 | NUR ---
PT IN BED WITH EYES CLOSED AND CHEST RISING. EASILY AROUSED TO VERBAL STIMULI. RECEIVED 0600 MEDICATIONS IN APPLESAUCE WITHOUT DIFFICULTY. NO CONCERNS MADE KNOW. DAUGHTER AT BEDSIDE. CALL LIGHT IN REACH.
--- NOTE | 2016-10-15 08:38 | RHP ---
PATIENT: ANA QUACH MEDICAL RECORD: [id number] ACCOUNT: [id number] LOCATION:[facility]1116 : [birth year] ADMISSION DATE: 10/09/16 REHABILITATION HISTORY AND PHYSICAL EXAMINATION POST ADMISSION PHYSICIAN EXAMINATION DATE OF ADMISSION TO THE REHAB: 10/09/2016 ADMITTING DIAGNOSES: Disuse myopathy, oropharyngeal dysphagia and malnutrition secondary to inadequate calorie intake. HISTORY OF PRESENT ILLNESS: The patient was admitted to the hospital and to be admitted to inpatient rehab for disuse myopathy with oropharyngeal dysphagia, proximal muscle weakness, history of prolonged immobility. She is an 86-year-old female patient from [place], [place] that recently moved here. She presented to the Emergency Room on October 04 with edema, generalized weakness, large volume ascites and difficulty ambulating. She was noted to have a strong positive stool guaiac. Apparently, her granddaughter had been taking care of her for the last month and according to the daughter, she has not been given her other meds. On exam, she is having difficulty ambulating. She was fatigued and weak with muscle weakness, previous history of CVA, neuropathy, diabetes, coronary artery disease with previous stents, angioplasty, history of colon cancer that was apparently diagnosed last year. She has an ostomy. She says she is normally independent without aid, but the past several weeks, she is weak and has been barely able to walk. She uses a rolling walker when she does. Currently, she is mod to max assist for ADLs and mobility for short distances. She is very cachectic and thin in appearance and will definitely need inpatient rehab to get back to her prior level of function and return home. 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 She has got osteopenia and anxiety. PAST MEDICAL HISTORY: Significant for CVA, neuropathy, diabetes and stents/angioplasty. PAST SURGICAL HISTORY: Includes coronary artery bypass grafting, appendectomy, hysterectomy, 2 shoulder replacements and an ostomy. ALLERGIES: ACRYLIC. CURRENT MEDICATIONS: Include Carafate 1 g t.i.d. with meals, polyethylene glycol 17 g in 8 ounces of water daily, Ditropan 5 mg daily, mineral oil daily, metformin 1000 mg b.i.d. with meals, Protonix 40 mg daily, lithium 300 mg q.h.s. and Neurontin 600 mg b.i.d. HABITS: No alcohol or tobacco use. FAMILY HISTORY: Noncontributory. SOCIAL HISTORY: The patient hopes to return back home, she is , and get back to her prior level of care. Apparently, her daughter plans to take her home and take care of her. HISTORY AND PHYSICAL [id number] ANA QUACH REVIEW OF SYSTEMS: GENERAL: Does complain of weakness and fatigue. HEENT: Denies cold, cough, or congestion. CARDIOVASCULAR: Denies chest pain. PHYSICAL EXAMINATION: VITAL SIGNS: Stable, afebrile. GENERAL: Elderly female in no acute distress, alert upon exam. HEENT: Normocephalic, atraumatic. Mucosa moist. NECK: Supple. No lymphadenopathy. LUNGS: Clear. HEART: Regular rate and rhythm. ABDOMEN: Benign. EXTREMITIES: Does have some noted deconditioning and weakness to her extremities and also noted skin changes. NEUROLOGIC: Consistent with neuropathy LABORATORY DATA: Her white count is 8.4, H&H of 10.5 and 32.6 and platelet count was noted to be 305. Her MCV is noted to be decreased to 75.6. 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 The patient has potential to make improvement. We instituted the following multidisciplinary therapies including to, but not limited to physical, occupational, respiratory, speech, nutritional services, prosthetics and orthotics. Given her complex condition and risk for more complications, rehabilitation services cannot be provided at a low level of care such as a long-term facility. PLAN: 1. Admit to [facility] rehab for intensive inpatient therapy to include the following disciplines: A. Physical therapy to improve gait, all transfer skills and bed mobility to a modified independent level. B. Occupational therapy to improve activities of daily living to modified independent level. C. Case management to assist with discharge planning and placement options. D. Nutrition to assist with nutritional needs. E. Rehabilitation nursing to assist in monitoring the patient's underlying medical conditions and to assist with any type of bowel or bladder management. 2. The patient's current medication and medical care will be continued. 3. The patient will be placed on standard fall precautions. 4. We will continue home medications where appropriate. 5. We will monitor her H&H closely and also check B12 and iron levels to assess her microcytic anemia. 6. We will discuss this patient during care team staff meeting this week. TRANSINT:[id number] Voice Confirmation ID: [id number] DOCUMENT ID: [id number] HISTORY AND PHYSICAL [id number] ANA QUACH SCOTT MD at 0838 CC: [id number] DICTATION DATE: 10/10/16 1220 ONCOLOGY NURSE: 10/10/16 1436 ADM IN [place] [id number] [place] [address]
[2016-10-15 10:41] VITALS: BP 129/69
--- NOTE | 2016-10-15 14:25 | NUR ---
PT. IS CURRENTLY IN THERAPY. NO SIGNS OF ANY DISCOMFORT OR DISTRESS. WILL BE OBSERVING THROUGH THE SHIFT. DAUGHTER IS VISITING AT THIS TIME ALSO.
[2016-10-15 19:38] VITALS: BP 130/64
--- NOTE | 2016-10-16 00:51 | NUR ---
PT RECEIVED UP IN CHAIR. NO COMPLANTS OR NEEDS MADE KNOWN. CALL LIGHT IN REACH.
--- NOTE | 2016-10-16 06:16 | NUR ---
PT IN BED WITH EYES CLOSED AND CHEST RISING. EASILY AROUSED UPON ENTRY. RECEIVED MEDICATIONS IN APPLESAUCE WITHOUT DIFFICULTY. DAUGHTER ON SOFA IN ROOM. NO COMPLAINTS OR CONCERNS MADE KNOWN. CALL LIGHT IN REACH.
[2016-10-16 06:38] LABS: BASOPHILS 0.2 % (0.0-2.0); EOSINOPHILS 0.5 % (0-7); HEMATOCRIT 32.3 % (36.0-48.0); HEMOGLOBIN 9.9 g/dL (12-16); IMMATURE GRANULOCYTES 0.3 % (0-5); LYMPHOCYTES 13.2 % (15-50); MCH 23.9 pg (26.0-34.0); MCHC 30.7 g/dL (31.0-37.0); MEAN PLATELET VOLUME 9.4 fL (7.4-10.4); MONOCYTES 6.7 % (2-11); NEUTROPHILS 79.1 % (40-80); PLATELET COUNT 316 10x3/uL (130-400); RBC 4.14 10x6/uL (4.00-5.40); RDW 14.9 % (11.5-14.5); WBC 9.7 10x3/uL (4.8-10.8)
[2016-10-16 06:54] LABS: CALCIUM 8.5 mg/dL (8.5-10.1); CARBON DIOXIDE 28.9 mmol/L (21.0-32.0); POTASSIUM - SERUM 3.9 mmol/L (3.5-5.1)
[2016-10-16 06:55] LABS: CREATININE - SERUM 0.9 mg/dL (0.6-1.3)
--- NOTE | 2016-10-16 07:30 | NUR ---
RESTING QUIETLY IN BED CALL LIGHT IN REACH
[2016-10-16 08:45] VITALS: BP 115/42
[2016-10-16 19:50] VITALS: BP 118/54
--- NOTE | 2016-10-16 22:21 | NUR ---
D/C LEFT WRIST SALINE LOC. CATH TIP INTACT. PT TOLERATED PROCEDURE WELL.
--- NOTE | 2016-10-16 23:14 | NUR ---
PT. IN BED WITH HOB UP FOR COMFORT WITH EYES CLOSED AND RESP. EVEN. CALL LIGHT WITHIN REACH.
--- NOTE | 2016-10-17 03:00 | NUR ---
PT IN BED WITH HOB UP FOR COMFORT, EYES CLOSED, CHEST RISING AND FALLING, BED IN LOWEST POSITION AND CALL LIGHT WITHIN REACH.
--- NOTE | 2016-10-17 06:30 | NUR ---
PT IN BED, EYES CLOSED, RESPIRATIONS EVEN AND UNLABORED, BED IN LOWEST POSITION AND CALL LIGHT WITHIN REACH.
[2016-10-17 07:00] VITALS: BP 106/65
--- NOTE | 2016-10-17 07:30 | NUR ---
RESTING QUIETLY IN BED. HAS BEEN IN BED MOST OF DAY AT HER REQUEST. STATES SHE IS VERY TIRED TODAY. DAUGHTER HAS BEEN WITH PT MOST OF DAY
--- NOTE | 2016-10-17 12:09 | NUR ---
ATE A LITTLE BIT OF LUNCH. POOR APPETITE NOTED. STILL VERY THIN AND FRAIL.
[2016-10-17 20:00] VITALS: BP 132/72
--- NOTE | 2016-10-17 20:00 | NUR ---
PT SITTING ON COUCH WITH VISITOR, NO COMPLAINTS AT THIS TIME.
--- NOTE | 2016-10-17 23:29 | NUR ---
PT. IN BED WITH HOB UP FOR COMFORT WITH EYES CLOSED AND RESP. EVEN. MALE INDIVIDUAL WHO IS STAYING THE NIGHT WITH THE PT. IS LYING ON THE COUCH AND DENIES ANY NEEDS FOR THE PT. CALL LIGHT IS WITHIN REACH.
--- NOTE | 2016-10-18 02:27 | NUR ---
PT IN BED, EYES CLOSED, CHEST RISING AND FALLING, DUAGHTER AND FAMILY FRIEND IN ROOM, BED IN LOWEST POSITION AND CALL LIGHT WITHIN REACH.
--- NOTE | 2016-10-18 03:49 | NUR ---
PT IN BED, EYES CLOSED, CHEST RISING AND FALLING, DAUGHTER AND FAMILY FRIEND IN ROOM, BED IN LOWEST POSITION AND CALL LIGHT WITHIN REACH.
[2016-10-18 07:00] VITALS: BP 137/73
--- NOTE | 2016-10-18 07:31 | NUR ---
RESTING QUIETLY IN BED. DTR IN ROOM CHARY PT.
--- NOTE | 2016-10-18 12:11 | NUR ---
RESTING QUIETLY IN BED. HAS BEEN SLEEPING MOST OF DAY. DTR IN ROOM WITH PT.
--- NOTE | 2016-10-18 16:01 | NUR ---
LAYING IN BED. EYES CLOSED. CALL LIGHT IN REACH
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
[2016-10-18 19:22] VITALS: BP 134/65
--- NOTE | 2016-10-18 19:22 | NUR ---
PT IN BED HOB UP FOR COMFORT, VISITING WITH FAMILY, PUT ON PT'S SCD'S, BED IN LOWEST POSITION AND CALL LIGHT WITHIN REACH.
--- NOTE | 2016-10-18 23:20 | NUR ---
PT IN BED WITH HOB UP FOR COMFORT, EYES CLOSED, CHEST RISING AND FALLING, BED IN LOWEST POSITION AND CALL LIGHT WITHIN REACH.
--- NOTE | 2016-10-19 01:57 | NUR ---
PT. IN BED LYING ON HER LEFT SIDE WITH HOB UP FOR COMFORT. EYES ARE CLOSED AND RESP. DEEP AND EVEN. NO FAMILY MEMBERS ARE WITH HER. CALL LIGHT WITHIN REACH.
--- NOTE | 2016-10-19 03:40 | NUR ---
WHEN EXITING ROOM 1117 THERE WAS A STRONG ODOR OF SOMETHING BURNING. PEAKED 1119'S DOOR OPEN AND HEARD WHAT SOUNDED LIKE A DOOR OR WINDOW CLOSING, THEN TO THE NURSES STATION AND GOT A COWORKER TO GO BACK WITH ME TO INVESTIGATE WHAT WAS GOING ON IN ROOM 1119. AJGDISH BRUSH RN AND I ENTERED ROOM AND IN DOING SO STRUCK A TRASH CAN THAT HAD BEEN PLACED BEHIND DOOR. SAW THAT THE B-BED'S CURTAIN HAD BEEN CLOSED ALL THE WAY ACROSS THE ROOM TO PREVENT SEEING WHAT WAS GOING ON BY THE BATHROOM. JAGDISH PULLED THE CURTAIN BACK AND FOUND PT'S DAUGHTER GETTING UP FROM HER W/C WITH A LOOK OF SURPRISE. JAGDISH INFORMED THE DAUGHTER THAT THERE WAS ABSOLUTELY NO SMOKING ALLOWED IN PT'S ROOMS OR ANYWHERE ON THE HOSPITAL PROPERTY. THEN JAGDISH INFORMED HER THAT THERE WAS NO BURING OF CANDLES EVER IN THE HOSPITAL ROOMS DUE TO FIRE/SAFETY HAZARD. DAUGHTER IMMEDIATELY WENT INTO THE BATHROOM AND BLEW OUT THE BURING CANDLE THAT SHE HAD IN THERE AND STATED SHE WOULD NEVER DO IT AGAIN AND WOULD NEVER SMOKE ON THE HOSPITAL PROPERTY AGAIN EITHER. JAGDISH ADVISED DAUGHTER TO PACK UP ALL BURNING ITEMS/CANDLES AND TAKE THEM HOME AND DAUGHTER AGREED AND SAID SHE WAS IN THE PROCESS OF PACKING THINGS UP ANYWAY.
[2016-10-19 07:28] LABS: BASOPHILS 0.1 % (0.0-2.0); EOSINOPHILS 0.9 % (0-7); HEMATOCRIT 30.3 % (36.0-48.0); HEMOGLOBIN 9.4 g/dL (12-16); IMMATURE GRANULOCYTES 0.4 % (0-5); LYMPHOCYTES 11.5 % (15-50); MCH 24.2 pg (26.0-34.0); MCV 78.1 fL (80.0-100.0); MEAN PLATELET VOLUME 9.8 fL (7.4-10.4); MONOCYTES 6.1 % (2-11); PLATELET COUNT 273 10x3/uL (130-400); RBC 3.88 10x6/uL (4.00-5.40); RDW 15.3 % (11.5-14.5); WBC 8.2 10x3/uL (4.8-10.8)
[2016-10-19 07:37] LABS: ANION GAP 12.3 mmol/L (8-16); CALCIUM 8.1 mg/dL (8.5-10.1); CARBON DIOXIDE 32.2 mmol/L (21.0-32.0); CREATININE - SERUM 0.8 mg/dL (0.6-1.3); POTASSIUM - SERUM 3.5 mmol/L (3.5-5.1)
[2016-10-19 08:00] VITALS: BP 103/46
--- NOTE | 2016-10-19 11:54 | NUR ---
EATING LUNCH IN ROOM WITH DTR. SHE IS STILL VERY WEAK AND FRAIL. APPETITE POOR. NO N/V NOTED. DTR HELPS PT WITH HER COLOSTOMY NEEDS.
--- NOTE | 2016-10-19 17:55 | NUR ---
RESTING QUIETLY IN BED. DTR IN ROOM WITH PT. DENIES NEEDS
--- NOTE | 2016-10-19 20:12 | NUR ---
PT RECEIVED IN BED WITH EYES CLOSED AND CHEST RISING. NO SIGN/SYMPTOMS OF DISTRESS NOTED. DAUGHTER IN ROOM. NO CONCERNS OR REQUEST MADE KNOWN AT THIS TIME. CALL LIGHT IN REACH.
[2016-10-19 20:45] VITALS: BP 110/52
--- NOTE | 2016-10-20 03:20 | NUR ---
PT IN BED WITH EYES CLOSED AND CHEST RISING. DAUGHTER IN ROOM ON SOFA. NO NEEDS OR CONCERNS MADE KNOWN. CALL LIGHT IN REACH.
[2016-10-20 08:39] VITALS: BP 125/45
--- NOTE | 2016-10-20 14:15 | NUR ---
Nutrition Follow Up: Pt reported that all food taste the same. She said that her appetite is poor. RD encouraged po intake and to make staff aware of food preferences. Pt is eating 19% meal avg on a regular diet with chopped meats. She is receiving Ensure BID. No new wt to assess. Labs noted. Meds noted including Lasix, Metformin. Pt continues with poor po intake. Rec continue current diet, supplement regimen. Will continue to provide selective menus and honor food preferences. RD following.
[2016-10-20 19:16] VITALS: BP 120/48
--- NOTE | 2016-10-20 19:45 | NUR ---
PT RECEIVED IN BED WITH EYES CLOSED AND CHEST RISING. NO SIGN/SYMPTOMS OF DISTRESS. EASILY AROUSED TO VERBAL STIMULI. FAMILY IN ROOM. NO REQUEST OR CONCERNS MADE KNOWN. CALL LIGHT IN REACH.
--- NOTE | 2016-10-21 01:52 | NUR ---
PT IN BED WITH EYES CLOSED AND CHEST RISING. FAMILY SLEEPING IN ROOM. NO CONCERNS NOTED AT THIS TIME. CALL LIGHT IN REACH.
--- NOTE | 2016-10-21 05:42 | NUR ---
PT IN BED WITH EYES CLOSED AND CHEST RISING. EASILY AROUSED TO VERBAL STIMULI. RECEIVED SCHEDULED MEDICATIONS PER MAR WHOLE IN APPLESAUCE WITHOUT DIFFICULTY. NO NEEDS MADE KNOWN. DAUGHTER IN ROOM ON SOFA. CALL LIGHT IN REACH.
[2016-10-21 06:26] LABS: BASOPHILS 0.2 % (0.0-2.0); EOSINOPHILS 1.2 % (0-7); HEMOGLOBIN 10.7 g/dL (12-16); IMMATURE GRANULOCYTES 0.3 % (0-5); LYMPHOCYTES 12.7 % (15-50); MCH 24.7 pg (26.0-34.0); MCHC 30.6 g/dL (31.0-37.0); MONOCYTES 8.1 % (2-11); NEUTROPHILS 77.5 % (40-80); PLATELET COUNT 234 10x3/uL (130-400); RBC 4.34 10x6/uL (4.00-5.40); RDW 15.4 % (11.5-14.5); WBC 9.9 10x3/uL (4.8-10.8)
[2016-10-21 06:28] LABS: MCV 80.6 fL (80.0-100.0)
[2016-10-21 06:50] LABS: CALCIUM 8.7 mg/dL (8.5-10.1); CARBON DIOXIDE 29.7 mmol/L (21.0-32.0); CREATININE - SERUM 0.8 mg/dL (0.6-1.3)
[2016-10-21 06:52] LABS: POTASSIUM - SERUM 4.7 mmol/L (3.5-5.1)
--- NOTE | 2016-10-21 08:00 | NUR ---
SHIFT ASSMT COMPLETED.DENIES NEEDS.DAUGHTER AT BEDSIDE.
[2016-10-21 09:04] VITALS: BP 115/50
--- NOTE | 2016-10-21 14:45 | NUR ---
CALLED CONSULT TO JOHNNY AND SPOKE WITH [place];CONSULT GIVEN.
--- NOTE | 2016-10-21 17:04 | NUR ---
CARE TEAM MEETING: TENATIVE DISCHARGE DATE IS 10/23/16 HOME WITH DAUGHTER. APS WILL BE NOTIFIED OF DISCHARGE. WILL CONTINUE TO FOLLOW WITH PATIENT UNTIL DISCHARGED
[2016-10-21 19:54] VITALS: BP 110/52
[2016-10-21 20:36] LABS: ALBUMIN 2.8 g/dL (3.4-5.0); BILIRUBIN - DIRECT 0.06 mg/dL (0.00-0.30); BILIRUBIN - INDIRECT 0.12 mg/dL (0.00-1.00); BILIRUBIN - TOTAL 0.18 mg/dL (0.2-1.3); PROTEIN - SERUM 5.8 g/dL (6.4-8.2)
--- NOTE | 2016-10-21 20:40 | NUR ---
PT IN BED WITH HOB UP FOR COMFORT, VISITING WITH FAMILY FRIEND, INFORMED PT THAT THERE ARE TO BE NO VISITORS COMING IN AND OUT THROUGH THE BACK DOOR IN THE THERAPY ROOM, PT STATED SHE UNDERSTANDS, BED IN LOWEST POSITION AND CALL LIGHT WITHIN REACH.
--- NOTE | 2016-10-22 00:40 | NUR ---
PT IN IN ROOM SITTING ON COUCH VISITING WITH FAMILY FRIEND AND DAUGHTER.
--- NOTE | 2016-10-22 02:05 | NUR ---
RESTING IN BED ON RIGHT SIDE. APPEARS COMFORTABLE.
--- NOTE | 2016-10-22 04:26 | NUR ---
PT IN BED WITH HOB UP FOR COMFORT, DAUGHTER IN ROOM, EYES CLOSED, CHEST RISING AND FALLING BED IN LOWEST POSITION AND CALL LIGHT WITHIN REACH.
--- NOTE | 2016-10-22 08:00 | NUR ---
SITTING UP IN WC FOR BREAKFAST.DENIES NEEDS.PLAN TO GO OUT ON DAY PASS WITH DAUGHTER TODAY.CL IN REACH
[2016-10-22 09:04] VITALS: BP 112/59
--- NOTE | 2016-10-22 12:25 | NUR ---
IN WC,ACCOMPANIED BY DAUGHTER OUT ON PASS.
--- NOTE | 2016-10-22 15:30 | NUR ---
RETURNED FROM PASS.DENIES NEEDS.STATED RUDI WELL.
--- NOTE | 2016-10-22 19:40 | NUR ---
PT IN BED, EYES CLOSED, CHEST RISING AND FALLING, FAMILY FRIEND IN ROOM, BED IN LOWEST POSITION AND CALL LIGHT WITHIN REACH.
[2016-10-22 20:57] VITALS: BP 117/72
--- NOTE | 2016-10-22 23:40 | NUR ---
PT IN BED, EYES CLOSED, RESPIRATIONS EVEN AND UNLABORED, FAMILY FRIEND IN ROOM, BED IN LOWEST POSITION AND CALL LIGHT WITHIN REACH.
--- NOTE | 2016-10-23 01:30 | NUR ---
PT RESTING, EYES CLOSED. BED LOW. CL IN [facility].
--- NOTE | 2016-10-23 03:00 | NUR ---
PT IN BED, EYES CLOSED, CHEST RISING AND FALLING, DAUGHTER AND FAMILY FRIEND IN ROOM, BED IN LOWEST POSITION AND CALL LIGHT WITHIN REACH.
--- NOTE | 2016-10-23 06:03 | NUR ---
PT IN BED, RESTING QUIETLY, CALL LIGHT WITHIN REACH AND BED IN LOWEST POSITION.
--- NOTE | 2016-10-23 07:30 | NUR ---
SITTING UP IN BED DRINKING COFFEE AND TALKING TO DTR. DENIES PAIN. VERY THIN AND FRAIL.
[2016-10-23 08:21] LABS: CA125 239.2 U/mL (0.0-38.1)
[2016-10-23 08:43] VITALS: BP 109/51
[2016-10-23] MEDS ORDERED: K-TAB10 MEQ PO (08:50)
[2016-10-23] MEDS ORDERED: LASIX20 MG PO (08:50)
--- NOTE | 2016-10-23 10:45 | NUR ---
IN BED WATCHING TV. DTR NOT IN ROOM . PT DENIES NEEDS
--- NOTE | 2016-10-23 12:12 | NUR ---
EATING LUNCH IN ROOM. DENIES NEEDS. CALL LIGHT IN REACH
--- NOTE | 2016-10-23 15:30 | NUR ---
PATIENT DISCHARGING TO [facility]. NO DME OR HOME HEALTH NEEED AT THIS TIME. APPOINTMENT WITH DR. SHEPHERD TO DISCUSS TREATMENT OR NOT 10/28/16 @ 4:30. [facility] APPROVED FOR 60 DAYS TO FACILITY, COPY FAXED TO [facility].SPOKE WITH SHEELA TOBAR OF [facility] , OF PATIENT BEING DISCHARGED TO [facility]. PATIENT CHOICE FOR SNF AND [facility] FORM SIGNED, EXPLIANED AND FILED IN CHART.[facility] WILL TRANSPORT PATIENT FROM HOSPITAL TO SNF.
[2016-10-23 19:20] VITALS: BP 131/59
--- NOTE | 2016-10-23 19:20 | NUR ---
PT IN BED WITH HOB UP FOR COMFORT, RESTING QUIETLY, RESPIRATIONS EVEN AND UNLABORED, BED IN LOWEST POSITION AND CALL LIGHT WITHIN REACH.
--- NOTE | 2016-10-23 22:30 | NUR ---
PT IN BED WITH HOB UP FOR COMFORT, EYES CLOSED, CHEST RISING AND FALLING, BED IN LOWEST POSITION AND CALL LIGHT WITHIN REACH.
--- NOTE | 2016-10-24 02:51 | NUR ---
PT RESTING, EYES CLOSED. BED LOW. CL IN [facility].
--- NOTE | 2016-10-24 06:21 | NUR ---
PT AM MEDS ADMINISTERED. PT ASSISTED TO BR. PT BACK IN BED AND DENIES FURTHER NEEDS.
[2016-10-24 07:00] VITALS: BP 119/55
--- NOTE | 2016-10-24 07:30 | NUR ---
AWAKE, TALKING TO DTR TO DTR IN ROOM. NO S/S PAIN
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
--- NOTE | 2016-10-24 12:12 | NUR ---
PT MOVED TO ROOM CLOSER TO NURSE STATION FOR MONITORING. PT VERY PLEASED ABOUT THIS.
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
--- NOTE | 2016-10-24 14:10 | NUR ---
PT DTR VERY INTRUSIVE. PULLED CURTAIN BACK IN SEMI PRIVATE ROOM AND STARTED TELLING OTHER FAMILY ABOUT HER TROUBLES. NURSE CLOSED CURTAIN AND ASKED PT TO LEAVE.
--- NOTE | 2016-10-24 17:59 | NUR ---
EATING SUPPER. SHE HAS EATEN MORE SINCE HER DTR HAS NOT BEEN HERE AT MEAL TIMES. PT STATES HER DTR WOULD TAKE A BITE OUT OF HER FOOD AND PT REFUSED TO EAT AFTER DTR.
--- NOTE | 2016-10-24 20:55 | NUR ---
PT HS MEDS ADMINISTERED IN APPLESAUCE. PT ASSISTED TO BR. PT BACK IN BED AND CHANGED INTO GOWN. WCTM. BED LOW. CL IN REACH.
--- NOTE | 2016-10-24 23:30 | NUR ---
PT RESTING, EYES CLOSED. BED LOW. CL IN REACH.
--- NOTE | 2016-10-25 01:02 | NUR ---
PT ASSISTED TO BR. COLOSTOMY BAG EMPTIED. PT BACK IN BED AND DENIES FURTHER NEEDS. WCTM. BED LOW. CL IN REACH.
--- NOTE | 2016-10-25 03:15 | NUR ---
PT RESTING, EYES CLOSED. RR ARE EVEN AND UNLABORED. WCTM. BED LOW. CL IN REACH.
--- NOTE | 2016-10-25 05:54 | NUR ---
PT AM MEDS ADMINISTERED. PT DENIES NEEDS. BED LOW. CL IN REACH.
[2016-10-25 07:00] VITALS: BP 142/71
--- NOTE | 2016-10-25 07:30 | NUR ---
SITTING UP IN WC.CL IN REACH.
--- NOTE | 2016-10-25 07:30 | NUR ---
PT IS SITTING IN HER WC AT HER BEDSIDE FEEDING SELF BREAKFAST WITHOUT DIFFICULTY. NO SWALLOW PROBLEMS NOTED. VSS. SHE DENIES ANY ACUTE NEEDS OR DISCOMFORT AT THIS TIME. COLOSTOMY BAG IS INTACT. CALL LIGHT AND BEDSIDE TABLE ARE WITHIN EASY REACH. PT FEEDING SELF BREAKFAST.
--- NOTE | 2016-10-25 09:33 | NUR ---
PT RECIEVING AM ADL CARE WITH THE ASSIST OF A [facility] NURSE STAFF. NO ACUTE DISTRESS NOTED.
--- NOTE | 2016-10-25 12:01 | NUR ---
PT SITTING IN WC IN HER ROOM EATING LUNCH. NO DISTRESS NOTED.
--- NOTE | 2016-10-25 14:45 | NUR ---
PT'S DAUGHTER NOTED GOING IN ROOM IN A WC. SHE CLOSED THE DOOR, AND THE TECHNICAL SYSTEM ANALYST REOPENED THE DOOR. SHE CLOSED IT AGAIN, AND I REOPENED IT, AND TOLD HER IT NEEDED TO STAY OPEN, WHILE SHE WAS VISITING. SHE WAS UPSET, AND STATED THAT HER MOTHER WAS COLD AND WANTED TO CHANGE CLOTHES. I CLOSED THE CURTAIN AROUND THE BED SO SHE COULD HAVE HER PRIVACY. A FEW MINUTES LATER ZORAIDA (CRISTINA) ENTERED THE ROOM AND WITNESSED THE DAUGHTER SLINGING CLOTHES ALL OVER THE BED, AND ASKED HER NOT TO BE DOING THIS AND YELLING AT THE PT STATING WHERES YOUR FOOD, WHY DIDNT YOU SAVE ME YOUR FOOD, AND STARTED THROWING MAGAZINES AT THE PT. THE TECHNICAL SYSTEM ANALYST ASKED HER TO STOP, AND SHE GOT IN THE CNAS FACE AND BEGAN YELLING, IM THE POA, AND I CAN DO ANYTHING I WANT. UPON HEARING THE YELLING, I ENTERED THE ROOM, THE PT WAS LEAVING THE ROOM ANGRILY YELLING "I AM THE POA, AND I CAN DO ANYTHING I WANT OVER AND OVER." I NOTED THE PT LAYING ON THE BED COVERED WITH MULTIPLE LAYERS OF CLOTHING, AND UPSET ABOUT HER DAUGHTERS BEHAVIOR. SECURITY WAS PAGED. THE DAUGHTER THEN CAME BACK INTO THE ROOM SLAMMING THE DOOR OPEN, AND GOT HER SANDLES AND THEN LEFT AGAIN. SECURITY ARRIVED AT THE UNIT, AND WAS INFORMED OF THE SITUATION. MULTIPLE ITEMS OF CLOTHING WERE THEN FOUND ON THE BATHROOM FLOOR. THESE ITEMS WERE PLACED IN THE WASHER FOR THE PT.
[2016-10-25 19:00] VITALS: BP 132/82
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
--- NOTE | 2016-10-25 21:25 | NUR ---
ASSESSMENT AND HS MEDS COMPLETE. DENIES NEEDS. CHECKED COLOSTOMY TO INSURE BAG IS DEFLATED. EARLIER ASSISTED PATIENT UP TO BR TO URINATE. BRIEF WAS THEN CHANGED DUE TO TRACE URINE INCONTINENCE.
--- NOTE | 2016-10-25 23:50 | NUR ---
RESTING QUIETLY IN BED, EYES CLOSED.
--- NOTE | 2016-10-26 01:55 | NUR ---
ASSISTED PATIENT UP TO BR TO URINATE, AND THEN BACK TO BED.
--- NOTE | 2016-10-26 03:50 | NUR ---
IN BED, RESTING WITH EYES CLOSED. TURNED SLIGHTLY TO HER RIGHT SIDE. RESPIRING QUIETLY.
--- NOTE | 2016-10-26 06:00 | NUR ---
RESTING IN BED, EYES CLOSED.
--- NOTE | 2016-10-26 07:30 | NUR ---
RESTING QUIETLY IN BED CALL LIGHT IN REACH
--- NOTE | 2016-10-26 08:00 | NUR ---
PATIENT ALERT/ ORIENT TO SELF AND PLACE ONLY. NEEDED COMPLETE SET UP WITH BREAKFAST. ABLE TO FEED SELF.
[2016-10-26 08:12] VITALS: BP 121/60
--- NOTE | 2016-10-26 10:00 | NUR ---
PATIENT IN REHAB ROOM. DENIES ANY PAIN/DISC AT THIS TIME
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
--- NOTE | 2016-10-26 11:49 | NUR ---
SPOKE WITH SHEELA Parker AT [facility] AND RECORDS HAVE BEEN FAXED FOR FOLLOW UP ON PATIENT. WILL CONTINUE TO FOLLOW WITH PATIENT
--- NOTE | 2016-10-26 12:35 | NUR ---
SAUMYA COME INTO UNIT. CAROLYNN JOSHI AND DENIS ROJAS IN ROOM WITH PATIENT AND DAUGHTER.
--- NOTE | 2016-10-26 14:25 | NUR ---
daughter Pastora is back in pt's room stating she needs the rest of her belongings, daughter still continues to ramble about her health issues. i notified David MUNOZO and security to meet with daughter. Santos, ARYAN, , and myself again meet with the daughter and explain to her that this type of behavior is upseting to the pt. and that she can not have unsupervised visitation at this time. daughter gathers more clothing from the room and leaves the unit with security.
[2016-10-26 16:15] VITALS: BP 127/56
--- NOTE | 2016-10-26 18:37 | NUR ---
PATIENT RESTING BACK IN BED AFTER SITTING UP IN WHEELCHAIR TO EAT SUPPER. HAS A POOR APPETITE. AT ABOUT 25% OF SUPPER
--- NOTE | 2016-10-26 18:55 | NUR ---
RESTING IN BED, SPRAWLED OUT ON RIGHT SIDE WITH COVERS IN DISARRAY (UNUSUAL FOR THIS PATIENT). NO EVIDENT DISTRESS AT THIS TIME.
[2016-10-26 20:26] VITALS: BP 124/58
--- NOTE | 2016-10-26 21:30 | NUR ---
ASSESSMENT AND HS MEDS COMPLETE. ASSISTED PATIENT UP TO BR COMMODE TO URINATE AND TO CLEAN HERSELF AND CHANGE TO [place]. TASKED PROGRAM DEVELOPER TO STAY WITH PATIENT AND ASSIST HER WITH HER ADL'S NEEDED, TO HELP HER SETTLE ON CLOTHING FOR TOMORROW (A STICKING POINT FOR HER TODAY AT 0630 WHICH COST ME ABOUT 15 MINUTES WHILE SHE DECIDED ON CLOTHING AND COMPLAINED ABOUT THE EARLY HOUR). PROGRAM DEVELOPER WILL ALSO HELP HER COMPLETE HER MENU SHE FELL ASLEEP WHEN I REMINDED HER TO FILL IT OUT AT 2020.
--- NOTE | 2016-10-26 22:35 | NUR ---
RESTING QUIETLY IN BED, EYES CLOSED.
--- NOTE | 2016-10-27 00:25 | NUR ---
IN BED, EYES CLOSED. NO DISTRESS NOTED.
--- NOTE | 2016-10-27 02:00 | NUR ---
CONTINUES IN BED, EYES CLOSED. A BIT RESTLESS JUDGING BY DISARRAY OF COVERS, BUT SHE IS NOT AWAKE.
--- NOTE | 2016-10-27 04:45 | NUR ---
RESTING QUIETLY IN BED, EYES CLOSED. WAS ASSISTED UP AROUND 0400 TO BR, AND THEN BACK TO BED. SCD'S WERE THEN RESUMED. BED ALARM IS ARMED.
--- NOTE | 2016-10-27 07:00 | NUR ---
PT. WAS RECEIVED AT THE BEGINNING OF THIS SHIFT IN BED AWAKE AND ORIENTED X 2. PT. DENIES ANY DISCOMFORT OR CONCERNS. VITAL SIGNS; TEMP. 98.4, PULSE 80, RESP. 14, B/P 113/57, 02SAT. 99%. WILL BE MONITORING HER AND ASSISTING PRN WITH ADL'S. CALL LIGHT IS IN REACH.
--- NOTE | 2016-10-27 09:59 | NUR ---
Nutrition Follow Up: Pt was asleep at the time of RD visit. Chart reviewed. Pt is eating 54% meal avg on a regular diet. She is receiving Ensure BID. No new wt to assess. +BM 10/27/16. Labs noted. Meds noted including Lasix, Metformin. Pt with fair po intake at this time. Rec continue current diet, supplement regimen. Will cancel guest tray at this time. RD following.
[2016-10-27 12:41] VITALS: BP 113/57
--- NOTE | 2016-10-27 14:43 | NUR ---
PT IS RESTING IN BED TRYING TO TAKE A LITTLE NAP RIGHT NOW. DENIES ANY NEEDS AT THIS TIME. CALL LIGHT IS IN HER REACH.
[2016-10-27 19:14] VITALS: BP 126/76
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
--- NOTE | 2016-10-27 22:11 | NUR ---
PT. IN BED LYING ON HER RIGHT SIDE WITH EYES CLOSED AND RESP. EVEN. CALL LIGHT WITHIN REACH. PT. TOLD ME EARLIER THAT HER SHOWER THIS EVENING WAS THE BEST SHE HAD EVER RECEIVED.
--- NOTE | 2016-10-28 06:01 | NUR ---
PT. IN BED LYING ON HER RIGHT SIDE WITH HOB UP FOR COMFORT. EYES CLOSED AND RESP. DEEP AND EVEN. CALL LIGHT WITHIN REACH.
--- NOTE | 2016-10-28 07:53 | NUR ---
PT UP IN WHEELCHAIR IN ROOM EATING BREAKFAST TOLERATING WELL WILL MONITER CALL LIGHT IN REACH
[2016-10-28 09:08] VITALS: BP 115/64
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
--- NOTE | 2016-10-28 11:04 | NUR ---
RESTING QUIETLY IN BED.CL IN REACH.
--- NOTE | 2016-10-28 15:43 | NUR ---
PT RESTING IN BED WITH EYES OPEN CALL LIGHT IN REACH NO PROBLEMS WILL MONITER
--- NOTE | 2016-10-28 17:24 | NUR ---
PT UP IN WHEELCHAIR EATING SUPPER TOLERATING WELL WILL MONITER
--- NOTE | 2016-10-28 19:20 | NUR ---
PT IN BED WITH EYES CLOSED AND CHEST RISING. EASILY AROUSED TO VERBAL STIMULI. NO COMPLAINTS OR CONCERNS MADE KNOWN AT THIS TIME. CALL LIGHT IN REACH.
[2016-10-28 22:21] VITALS: BP 146/64
--- NOTE | 2016-10-29 01:30 | NUR ---
PT IN BED WITH EYES CLOSED AND CHEST RISING. NO SIGN/SYMPTOMS OF DISTRESS NOTED. CALL LIGHT IN REACH.
--- NOTE | 2016-10-29 07:27 | NUR ---
PT IN BED WITH EYES CLOSED AND CHEST RISING. RECEIVED AM MEDICATIONS WITHOUT DIFFICUTLY IN APPLESAUCE. ASSISTED TO BATHROOM VIA WHEELCHAIR. COLOSTOMY EMPTIED. NO CONCERNS MADE KNOWN. CALL LIGHT IN REACH.
--- NOTE | 2016-10-29 07:30 | NUR ---
QUIET IN BED.PLAN FOR DC TODAY.
--- NOTE | 2016-10-29 08:00 | NUR ---
PATIENT HELPED UP INTO WHEELCHAIR AT BEDSIDE FOR BREAKFAST. ALERT/ORIENT TO SELF/PLACE ONLY. CALL LIGHT WITHIN REACH. CHAIR ALARM ON.
[2016-10-29 08:18] VITALS: BP 133/69
--- NOTE | 2016-10-29 09:16 | NUR ---
DR. ORDONEZ INTO SEE PATIENT. DISCHARGE ORDERS WRITTEN. SON FROM [place] TO TAKE PATIENT HOME WITH HIM TO LIVE.
--- NOTE | 2016-10-29 10:43 | NUR ---
PATIENT DISCHARGED IN CARE OF HER SON, MR. FORREST.HE WILL MAKE AN APPOINTMENT WITH HER PCP IN [place]. UNABLE TO REACH SHEELA TOBAR AT [facility] . [facility] FORM SIGNED, EXPLAINED AND FILED IN CHART
--- NOTE | 2016-10-29 10:59 | NUR ---
SON HERE TO TAKE PATIENT HOME. DISCHARGE INSTRUCTIONS GONE OVER WITH SON AND PATIENT. MEDICATIONS CALLED INTO [facility] ON [facility].
== END 2016-10-29 11:01 | disposition home or self-care (01) | DRG 92 ==
LOC: D.REHAB 20:30
PROVIDERS: Internal Medicine Medical Oncology; ADMIT Emergency Medicine
DX: G72.89 Other specified myopathies (principal); E46 Unspecified protein-calorie malnutrition; I50.20 Unspecified systolic (congestive) heart failure; J90 Pleural effusion, not elsewhere classified; C18.9 Malignant neoplasm of colon, unspecified; J98.11 Atelectasis; R13.12 Dysphagia, oropharyngeal phase; N28.89 Other specified disorders of kidney and ureter; E86.0 Dehydration; R53.83 Other fatigue; R19.5 Other fecal abnormalities; E11.65 Type 2 diabetes mellitus with hyperglycemia; E11.40 Type 2 diabetes mellitus with diabetic neuropathy, unspecified; Z86.73 Personal history of transient ischemic attack (TIA), and cerebral infarction without residual deficits; F41.9 Anxiety disorder, unspecified; M85.80 Other specified disorders of bone density and structure, unspecified site